=== PATIENT | male | born 1955 | race Caucasian/White ===

== ENCOUNTER 2017-12-01 13:15 | Inpatient (IN) ==
--- NOTE | 2017-12-01 13:45 | ED ---
HPI General Chief complaint: Chest Pain Stated complaint: chest pain Time Seen by Provider: 12/01/17 13:21 History of Present Illness HPI narrative: This is a 62-year-old male with a 30-ceyg-domp smoking history who presents to the emergency department with chest discomfort. The patient reports that he was reaching over his head using a microwave when he started to have pressure in his chest, constant, severe associated with nausea and diaphoresis. He felt like he was going to pass out. He has had pain like this mildly in the past but never this severe. He says several years ago he came in with chest pain like this and had multiple tests all which came back negative. He did feel somewhat short of breath with this but he denies wheezing. He does have significant COPD and has been told he may need to go on oxygen. He denies any recent long trips or travel and denies any leg swelling. Related Data Home Medications Medication Instructions Recorded Confirmed fluticasone-salmeterol [Advair HFA] 2 puff INHALATION Q12H PRN 12/01/17 12/01/17 Allergies Allergy/AdvReac Type Severity Reaction Status Date / Time No Known Allergies Allergy Unverified 12/01/17 13:30 Review of Systems Except as stated in HPI: all other systems reviewed are negative [facility] Medical History Medical History COPD (chronic obstructive pulmonary disease) (Acute) Surgical History Surgical History No history of previous surgery (Acute) Social History Social History Substance History: No History of Abuse Second Hand Smoke Exposure: Yes Smoking Status: Heavy tobacco smoker Tobacco Type: Cigarettes How Often Do You Have a Drink Containing Alcohol: Never Recent Travel in [facility] within the Last 8 Weeks: No Recent Out of Country Travel within the Last 8 Weeks: No Immunization History Tetanus Immunization: >5 Years Hx Influenza Vaccine This Season: Yes Exam Narrative Exam Narrative: GENERAL:Well appearing, no acute distress SKIN: Focused skin assessment warm and dry. HEAD: Atraumatic. Normocephalic. EYES: Pupils equal and round. No injection or drainage. ENT: Moist mucous membranes NECK: Trachea midline. CARDIOVASCULAR: Regular rate and rhythm. No murmur appreciated. RESPIRATORY: Clear to auscultation. Breath sounds equal bilaterally. GASTROINTESTINAL: Abdomen soft, non-tender, nondistended. MUSCULOSKELETAL: No obvious deformities. NEUROLOGICAL: Awake and alert. No obvious cranial nerve deficits. Moving all extremities. PSYCHIATRIC: Appropriate mood and affect; insight and judgment normal. Course Hospital Course: Patient's discomfort returned at approx 1435, at which time a repeat EKG showed an acute STEMI (ST elevations in the inferior leads with reciprocal changes in the lateral leads). The catholic priest was activated ([id number]) and I, Dr Bach, took over the care of the patient. He had already received aspirin. His BP was in the 70s, thus he was given a 250 cc bolus NS to improve his pre-load. He was given a heparin bolus of 4000 units and morphine for the pain. I spoke with Dr Manuel (Dr Lea had previously spoken with him) regarding the care of the patient, to which he agreed. Reevaluation(s) Reevaluation #1: Patient given more morphine. BP improved with fluid bolus. Patient taken up to the catholic priest by RN, Mariano, and myself. Time: 15:16 Initial Documented Vital Signs Temperature 97.8 F 12/01/17 13:30 Pulse Rate 91 H 12/01/17 13:30 Respiratory Rate 18 12/01/17 13:30 Blood Pressure 125/75 12/01/17 13:30 Pulse Oximetry 100 12/01/17 13:30 Last Documented Vital Signs Temperature 97.8 F 12/01/17 16:00 Pulse Rate 69 12/01/17 16:00 Respiratory Rate 18 12/01/17 16:00 Blood Pressure 155/99 H 12/01/17 16:00 Pulse Oximetry 96 12/01/17 16:00 Critical Care Time Critical Care Time: Yes Total Critical Care Time: 40 Attestation: Aggregate critical care time was 40 minutes. Time to perform other separately billable procedures was not included in the critical care time. My time did not include minutes spent treating any other patients simultaneously or on activities that did not directly contribute to the patient's treatment. The services I provided to this patient were to treat and/or prevent clinically significant deterioration that could result in: , disability. I provided critical care services requiring my management, as noted below: Chart data review, documentation time, medication orders and management, vital sign assessments/reviewing monitor data, ordering and reviewing lab tests, ordering and interpreting/reviewing x-rays and diagnostic studies, care of the patient and discussion of the patient with the admitting physicians (Dr Manuel). Quality Measure Queries AMI PCI delay comment: Initial EKG was inconclusive. ASA not given on arrival: Alisa taken by patient Medical Decision Making MDM Narrative Medical decision making narrative: This is a 62-year-old male who has a long smoking history who presented to the emergency department with chest discomfort. Initial EKG was not consistent with ST elevation IN. Patient had relief of his pain with nitroglycerin. I was called back into the room as the patient's pain recurred. I obtain a second EKG which demonstrated a clear inferior ST elevation IN. I discussed the patient with Dr. Manuel and the Playground Director was activated. I asked Dr. Bach to take over care of the patient as I had multiple critical patients at the time. Patient is a 62-year-old male who presented with chest pain that was initially relieved with nitroglycerin. Repeat EKG concerning for acute STEMI at which time the Playground Director was activated and both Dr. Lea and myself spoke with Dr. Manuel, applications programmer analyst. He been given aspirin prior to arrival, received a heparin bolus in the emergency department in addition to several doses of morphine and a 250 cc bolus of normal saline as his blood pressure had decreased to the 70s systolic. BP improved after receiving the bolus at which time it was stopped. Patient was then taken to the Playground Director for further management. Differential Diagnosis Differential Diagnosis: Differential diagnosis includes, but is not limited to ACS, COPD, pneumonia. Medical Records Medical records reviewed: Yes I reviewed the patient's medical records. Lab Data Lab results reviewed: Yes I reviewed the patient's lab results. Lab results narrative: Normal Hemoglobin. BMP unremarkable. Troponin pending. Result diagrams: 12/01/17 13:35 12/01/17 14:45 Lab Results 12/01/17 12/01/17 12/01/17 Range/Units 13:35 13:35 13:35 WBC 9.0 (4.0-11.0) th/mm3 RBC 5.05 (4.50-5.90) mil/mm3 Hgb 16.4 (13.0-17.0) gm/dL Hct 45.9 (39.0-51.0) % MCV 90.7 (80.0-100.0) fL MCH 32.5 (27.0-34.0) pg MCHC 35.8 (32.0-36.0) % RDW 14.0 (11.6-17.2) % Plt Count 236 (150-450) th/mm3 MPV 7.9 (7.0-11.0) fL Neut % (Auto) 59.7 (16.0-70.0) % Lymph % (Auto) 30.2 (9.0-44.0) % [place] % (Auto) 7.4 (0.0-8.0) % Eos % (Auto) 1.5 (0.0-4.0) % Baso % (Auto) 1.2 (0.0-2.0) % Neut # (Auto) 5.4 (1.8-7.7) th/mm3 Lymph # (Auto) 2.7 (1.0-4.8) th/mm3 [place] # (Auto) 0.7 (0.0-0.9) th/mm3 Eos # (Auto) 0.1 (0.0-0.4) th/mm3 Baso # (Auto) 0.1 (0.0-0.2) th/mm3 WBC Differential . Differential Comment Auto diff final PT (9.8-11.6) sec INR Ratio APTT (24.3-30.1) sec D-Dimer Quant (PE/DVT) 0.48 (0.00-0.50) mg/L FEU Sodium (136-145) meq/L Potassium (3.5-5.1) meq/L Chloride (98-107) meq/L Carbon Dioxide (21.0-32.0) meq/L Anion Gap (5-15) meq/L BUN (7-18) mg/dL Creatinine (0.60-1.30) mg/dL Estimated GFR (>89) mL/min Random Glucose (74-106) mg/dL Calcium (8.5-10.1) mg/dL Total Bilirubin (0.2-1.0) mg/dL AST (15-37) U/L ALT (12-78) U/L Alkaline Phosphatase (45-117) U/L Troponin I (0.02-0.05) ng/mL B-Natriuretic Peptide 18 (0-100) pg/mL Total Protein (6.4-8.2) g/dL Albumin (3.4-5.0) g/dL 12/01/17 12/01/17 Range/Units 14:38 14:45 WBC (4.0-11.0) th/mm3 RBC (4.50-5.90) mil/mm3 Hgb (13.0-17.0) gm/dL Hct (39.0-51.0) % MCV (80.0-100.0) fL MCH (27.0-34.0) pg MCHC (32.0-36.0) % RDW (11.6-17.2) % Plt Count (150-450) th/mm3 MPV (7.0-11.0) fL Neut % (Auto) (16.0-70.0) % Lymph % (Auto) (9.0-44.0) % [place] % (Auto) (0.0-8.0) % Eos % (Auto) (0.0-4.0) % Baso % (Auto) (0.0-2.0) % Neut # (Auto) (1.8-7.7) th/mm3 Lymph # (Auto) (1.0-4.8) th/mm3 [place] # (Auto) (0.0-0.9) th/mm3 Eos # (Auto) (0.0-0.4) th/mm3 Baso # (Auto) (0.0-0.2) th/mm3 WBC Differential Differential Comment PT 10.0 (9.8-11.6) sec INR 1.0 Ratio APTT 22.5 L (24.3-30.1) sec D-Dimer Quant (PE/DVT) (0.00-0.50) mg/L FEU Sodium 138 (136-145) meq/L Potassium 4.1 (3.5-5.1) meq/L Chloride 107 (98-107) meq/L Carbon Dioxide 22.4 (21.0-32.0) meq/L Anion Gap 9 (5-15) meq/L BUN 17 (7-18) mg/dL Creatinine 1.20 (0.60-1.30) mg/dL Estimated GFR 62 L (>89) mL/min Random Glucose 115 H (74-106) mg/dL Calcium 8.9 (8.5-10.1) mg/dL Total Bilirubin 0.3 (0.2-1.0) mg/dL AST 10 L (15-37) U/L ALT 21 (12-78) U/L Alkaline Phosphatase 83 (45-117) U/L Troponin I 0.10 H (0.02-0.05) ng/mL B-Natriuretic Peptide (0-100) pg/mL Total Protein 7.0 (6.4-8.2) g/dL Albumin 3.7 (3.4-5.0) g/dL Imaging Data Attestation: I personally reviewed and interpreted this imaging study as follows : My impression: No acute cardiopulmonary process. Radiologist's impression: Chest X-Ray 12/01/17 13:34 CONCLUSION: Unremarkable study. ECG Data Attestation: I personally reviewed and interpreted this ECG as follows: (Sinus rhythm at a rate of [address] segment elevations in the inferior leads with reciprocal changes in the lateral leads. This is markedly different in comparison to his first EKG today.) Discharge Plan Discharge Disposition Patient Disposition: 30 Still Patient Discharge Condition Condition: Serious Discharge Details Diagnosis: ST elevation (STEMI) myocardial infarction, Acute hypotension Physicians Team ED Provider: Kimberly Lea Primary Care Provider: Juan Villela Attending Provider: Dank Manuel Other Providers: Juan Lepe Status ED Status: Left Department Discharge Information Discharge Date/Time: 12/01/17 15:16
[2017-12-01 14:01] LABS: Baso # (Auto) 0.1 th/mm3 (0.0-0.2); Baso % (Auto) 1.2 % (0.0-2.0); Eos # (Auto) 0.1 th/mm3 (0.0-0.4); Eos % (Auto) 1.5 % (0.0-4.0); Hematocrit 45.9 % (39.0-51.0); Hemoglobin 16.4 gm/dL (13.0-17.0); Lymph # (Auto) 2.7 th/mm3 (1.0-4.8); Lymph % (Auto) 30.2 % (9.0-44.0); Mean Corpuscular HGB Conc 35.8 % (32.0-36.0); Mean Corpuscular Hemoglobin 32.5 pg (27.0-34.0); Mean Corpuscular Volume 90.7 fL (80.0-100.0); Mean Platelet Volume 7.9 fL (7.0-11.0); Mono # (Auto) 0.7 th/mm3 (0.0-0.9); Mono % (Auto) 7.4 % (0.0-8.0); Neut # (Auto) 5.4 th/mm3 (1.8-7.7); Neut % (Auto) 59.7 % (16.0-70.0); Platelet Count 236 th/mm3 (150-450); Red Blood Count 5.05 mil/mm3 (4.50-5.90)
[2017-12-01] MEDS ORDERED: Morphine Inj 4 MG/ML Vial IV.PUSH ONE ×2 (14:28→14:56)
[2017-12-01] MEDS ORDERED: Heparin 10,000 UNITS/10 ML Vial (for IV use) IV.PUSH STA (14:38)
[2017-12-01] MEDS ORDERED: Sod Chloride 0.9% Inj 1,000 ML IV.SIG SCH (14:45)
--- NOTE | 2017-12-01 14:51 | XR ---
EXAM DATE: 12/01/2017 2:27 PM EDT AGE/SEX: 62 years / Male INDICATIONS: . Chest pain. CLINICAL DATA: This is the patient's initial encounter. Patient reports that signs and symptoms have been present for 1 day and indicates a pain score of 7/10. MEDICAL/SURGICAL HISTORY: . COPD None. COMPARISON: No prior exams available for comparison. FINDINGS: The lungs are clear without infiltrate, nodule, or mass. There is no pleural effusion. N o appreciable pathological adenopathy is seen within the mediastinum. CONCLUSION: Unremarkable study. Electronically signed by: Robb Irizarry MD 12/01/2017 2:50 PM EDT
[2017-12-01 15:11] LABS: Activated Partial Thrombo Time 22.5 sec (24.3-30.1)
[2017-12-01] MEDS ORDERED: Heparin/NS PF Inj 1,000 ML ONE (15:15)
[2017-12-01 15:25] LABS: Alanine Aminotransferase 21 U/L (12-78); Albumin 3.7 g/dL (3.4-5.0); Anion Gap 9 meq/L (5-15); Aspartate Aminotransferase 10 U/L (15-37); Blood Urea Nitrogen 17 mg/dL (7-18); Calcium 8.9 mg/dL (8.5-10.1); Carbon Dioxide 22.4 meq/L (21.0-32.0); Chloride 107 meq/L (98-107); Glomerular Filtration Rate 62 mL/min (>89); Glucose,Random 115 mg/dL (74-106); Potassium 4.1 meq/L (3.5-5.1); Sodium 138 meq/L (136-145)
[2017-12-01 15:29] LABS: Alkaline Phosphatase 83 U/L (45-117)
[2017-12-01] MEDS ORDERED: fentaNYL Citrate Inj 100 MCG/2 ML Ampul ONE (15:40)
[2017-12-01] MEDS ORDERED: Cangrelor Inj 50,000 MCG Vial ONE (15:41)
[2017-12-01] MEDS ORDERED: Heparin 10,000 UNITS/10 ML Vial (for IV use) ONE (15:42)
[2017-12-01] MEDS ORDERED: Atropine Inj 1 MG/ML Vial IV.PUSH PRN (16:25)
[2017-12-01] MEDS ORDERED: Misc Info for Pharmacy OTHER STA (16:25)
[2017-12-01] MEDS ORDERED: Temazepam 15 MG Capsule PO PRN (16:25)
[2017-12-01] MEDS ORDERED: Acetaminophen 325 MG Tablet PO PRN (16:25)
--- NOTE | 2017-12-01 16:34 | MA ---
cc: Dank Manuel MD DATE: 12/01/2017 PROCEDURE PERFORMED: Emergency left heart catheterization, selective coronary angiography, left ventriculography, angioplasty/thrombectomy/stent of the proximal to mid right coronary artery. PROCEDURES NOTES: The patient was brought to the cardiac catheterization laboratory under emergency conditions in the midst of an acute inferior myocardial infarction. The right groin was prepped and draped as per policy and anesthetized with 1% lidocaine. Arterial access was obtained via the right femoral artery and a 6-Paragu[place] sheath placed. Coronary arteriography was performed using 6-[place] Abby left 4.0 and right progressive catheters. Left ventriculography was done using a standard 6-[place] pigtail. Percutaneous coronary intervention was done as described below. There were no apparent, immediate complications. His arteriotomy site was closed with Angio-Seal. HEMODYNAMIC DATA: Left ventricle 144 with an end-diastolic pressure of 10. Aorta 143/75 with a mean of 104. There was no significant transvalvular aortic gradient on pullback of the pigtail catheter. CORONARY ARTERIOGRAPHY: The left main is normal. The left anterior descending is a medium-sized vessel giving rise to a tiny diagonal, which may have up to 20% ostial stenosis. There are minimal luminal irregularities in the proximal LAD. In the mid LAD, there is somewhat eccentric, up to 40% stenosis. The left circumflex is a very large vessel giving rise to a medium sized obtuse marginal distally. No disease is seen in the left circumflex system. There is a large ramus intermedius, which has diffuse mid disease, resulting in up to 15% stenosis. The right coronary artery is medium-sized dominant vessel, which has diffuse proximal to mid disease, which is ulcerated and thrombosed, resulting in up to 95% stenosis. LEFT VENTRICULOGRAPHY: Contrast injection of the left ventricle revealed no definite segmental wall motion abnormalities. Ejection fraction is estimated at 60%. PERCUTANEOUS CORONARY INTERVENTION DESCRIPTION: Cangrelor was given as per protocol. Adequate heparin was given to achieve an ACT of 300 seconds. Using a 6-Paragu[place] hockey stick guiding catheter with side holes, the ostium of the right coronary artery was reengaged. Using a 0.014 [place] wire, the proximal to mid disease was crossed without difficulty and the tip of the wire positioned distally. Predilation was done using a 2.0 mm Euphora balloon catheter to enable passage of the [place] thrombectomy catheter. One pass was made with the [place] catheter clearing most of the thrombus. Further predilation was done using a 3.5 mm Euphora balloon catheter. Stenting was then done using a 3.5 x 26 mm Resolute [place] stent, which was deployed at 17 atmospheres for 40 seconds. At this point, there appears to be residual disease slightly proximal to the stent, resulting in up to 60% stenosis, so we decided to place another overlapping stent, which is a 3.5 x 8 mm Resolute Uli stent, which was deployed at 17 atmospheres for 40 seconds. Final angiography shows good results with reduction of the diffuse disease to roughly 0% residual with no definite evidence of dissection or distal embolization. The patient tolerated the procedure fairly well. There were no apparent, immediate complications. CONCLUSIONS: 1. Severe single vessel coronary artery disease. 2. Acute inferior ST elevation myocardial infarction due to severe disease in the proximal to mid right coronary artery, now status post thrombectomy, angioplasty, stent of this region. 3. Normal left ventricular function with estimated ejection fraction of 60%. MD TA Ornelas/JOSETTE , 04:17 PM , 04:24 PM MTD[place]ena
--- NOTE | 2017-12-01 16:42 | CATHPROC ---
Assignment Editor HIS Report Study Information Study Number Admission Scheduled Start Study Start [id number] Dec 01 2017 2:58PM 12/01/2017 Dec 01 2017 3:16PM [place] [facility] Cardiac Catheterization Admit Source Facility Department Emergency department [facility] - [employer] [employer] Physician and Clinical Staff Initial Dank Pierre Student Success Advisor Ching Downs,RN Student Success Advisor Ayse Case,JANNA Recorder Alison Biggs,FENCE MAKING MACHINE OPERATOR TECH2 Scrub Osmel Hoff,RT(R) Procedures Performed Procedure Location (Site) Vessel Name Coronary Angiograms LCA Left Coronary Coronary Angiograms RCA Right Coronary Drug Eluting Inflatio RCA Mid Right Coronary Drug Eluting Inflatio RCA Prox Right Coronary PTCA RCA Prox Right Coronary Wire insertion Fem Art (right) Femoral Art Equipment Time Press Loader Description Size Mfg Part Number Used/Scraped [id number] 15:41 [employer] WIRE, ASAHI PROWATER 180CM 180CM Used *[id number] TRANSDUCER, TRUWAVE [id number] 15:18 PIÑA WU * Used W/STOCKCOCK *[id number] *[id number] *[id number] *[id number] *[id number] 16:05 DAIG/ST. KAYLI MEDICAL ANGIOSEAL, FR6 VIP FR 6 Used *[id number] 16:03 MALLINCKRODT SYRINGE, ANGIOMAT 150ML 150ML *[id number] Used 2SUB [id number] 15:18 DNA13 BLANKET,WARM AIR CCL * Used *[id number] 15:18 DNA13 PACK, CCL CUSTOM * Used *[id number] 15:18 MEDLINE PACER PEN, SKIN DUAL W/ RULER * Used *[id number] 15:46 MEDTRONIC BALLOON, 2.0 X 15MM EUPHORA 15MM Used *[id number] 15:52 MEDTR[employer] BALLOON, 3.5 X 20MM EUPHORA 20MM Used *[id number] 15:50 MEDTRONIC CATHETER, EXPORT ASPIRATON Used *[id number] 15:57 MEDTRONIC STENT, 3.5 26MM MARJAN 3.5 26MM [id number] Used [id number] 15:57 [employer]TR[employer]IC STENT, 3.5 8MM MARJAN 3.5 8MM Used *[id number] 15:48 [employer] MEDICAL 30 KENN INDEFLATOR Used *[id number] 15:18 [employer] MEDICAL SHEATH, FR6.5 PRELUDE 11CM FR 6.5 038ACT Used *[id number] 15:18 [employer] MEDICAL WIRE, 3MMJ .035 180CM 180CM Used *[id number] 15:18 NAMIC MANIFOLD, 4 PORT * Used *[id number] TUBING, PRESSURE INJECTION [id number] 16:03 NAMIC 72" Used 72" *[id number] 15:18 NYCOMED OMNIPAQUE, 350 MG, 150ML 150ML [id number] Used Equipment Model, Serial, Lot Number and Expiration Data Description Model Number Serial Number Lot Number Expiration Date ANGIOSEAL, FR6 VIP [id number] 09-03-2018 STENT, 3.5 26MM MARJAN [id number] 07-11-2019 STENT, 3.5 8MM MARJAN [id number] 08-02-2018 History: Allergies Allergy Reaction No Known Allergies History: Risk Factors Family History of Hypertension Dyslipidemia Previous NH Previous Heart Failure Premature CAD Yes No No No No Prior Valve Prior PCI Prior CABG Surgery No No No Cerebrovascular Peripheral Artery Chronic Lung On Dialysis Diabetes Disease Disease Disease No No No Yes No History: Symptoms/Diagnosis Selection Items Chest pain SOB History: Stress Tests Stress or Imaging Studies Performed No History: Other Current Smoker Method Packs a Day Years Used Pack Years Yes Cigarettes 1 40 40 Labs Hgb (g/dl) Hct (%) WBC (l/cumm) Platelets (thousands) 11.60-17.00 35.00-51.00 4.00-11.00 150.00-450.00 16.4 45.9 9 236 Glucose (mg/dl) BUN (mg/dl) Creatinine (mg/dl) BUN:Creatinine (1:x) 74.00-106.00 7.00-18.00 0.50-1.30 10.00-20.00 115 17 1.2 14.2 Na (meq/l) K (meq/l) Cl (meq/l) CO2 (mmol/L) 136.00-145.00 3.50-5.10 98.00-107.00 21.00-32.00 138 4.1 107 22.4 INR (PTT:PT) 0.90-1.10 1 Troponin I (ng/ml) CPK-MB (ng/ML) 0.02-0.05 0.50-3.60 0.1 Not Drawn Medication Medication Total Dose (Bolus/Oral) Medication Total Dosage/Unit 1% XYLOCAINE 20 mL BRILINTA 180 mg FENTANYL 100 mcg HEPARIN 4000 units NTG (IC) 350 mcg OXYGEN 2 l/min VASOTEC 1.25 mg VERSED 4 mg Medications (Bolus/Oral) Medication Time Given Dosage/Unit Administered By Reason OXYGEN 12/01/2017 3:22:15 PM 2 l/min Patient arrived on 2 l/min OXYGEN via Nasal. VERSED 12/01/2017 3:34:04 PM 2 mg Manpreet, Ayse 2 mg VERSED given in lab by Ayse Case RN in Right Antecubital via Peripheral IV. Ordered by Dank Ma. 1% XYLOCAINE 12/01/2017 3:35:09 PM 20 mL Dank Manuel 20 mL 1% XYLOCAINE given in lab by Dank Manuel in Right Groin via Subcutaneous. Ordered by Sae Manuel enn. FENTANYL 12/01/2017 3:40:57 PM 50 mcg Mohini Caseinda 50 mcg FENTANYL given in lab by Ayse Case RN in Right Antecubital via Peripheral IV. Ordered by Dank Manuel. HEPARIN 12/01/2017 3:43:06 PM 4000 units Mohini Caseinda 4000 units HEPARIN given in lab by Ayse Case RN in Right Antecubital via Peripheral IV. Ordered by Dank Manuel. VERSED 12/01/2017 3:54:19 PM 2 mg Manpreet, Ayse 2 mg VERSED given in lab by Ayse Case RN in Right Antecubital via Peripheral IV. Ordered by Dank Ma. NTG (IC) 12/01/2017 3:55:27 PM 150 mcg Dank Manuel 150 mcg NTG (IC) given in lab by Dank Manuel via Intra-coronary. Ordered by Dank Manuel. NTG (IC) 12/01/2017 4:00:48 PM 200 mcg Dank Manuel 200 mcg NTG (IC) given in lab by Dank Manuel via Intra-coronary. Ordered by Dank Manuel. FENTANYL 12/01/2017 4:01:04 PM 50 mcg Ayse Case 50 mcg FENTANYL given in lab by Ayse Case RN in Right Antecubital via Peripheral IV. Ordered by Dank Manuel. BRILINTA 12/01/2017 4:15:24 PM 180 mg Ching Downs 180 mg BRILINTA given in lab by Ching Downs, JANNA via Oral. Ordered by Dank Manuel. VASOTEC 12/01/2017 4:18:21 PM 1.25 mg Ching Downs 1.25 mg VASOTEC given in lab by Ching Downs, JANNA in Right Antecubital via Peripheral IV. Ordered b Dank Goldman. Medication (Drip) Medication Time Given Dosage/Unit Concentration/Unit Diluent (ml) Solution IV Solutions 12/01/2017 3:26:14 PM 0 mL (IV) 1000 NaCl .9 Patient arrived on IV Solutions in Right Antecubital via Peripheral IV. Pump/Drip Flow = 20 ml/hr usi ng NaCl .9. KENGREAL BOLUS 12/01/2017 3:46:40 PM 10 mL 10 mL KENGREAL BOLUS given in lab by Ching Downs, JANNA in Right Antecubital via Peripheral IV. Orde red by Dank Manuel. KENGREAL DRIP 12/01/2017 3:48:43 PM 4 mcg/kg/min 50 mg 250 NaCl .9 4 mcg/kg/min KENGREAL DRIP given in lab by Ching Downs, JANNA in Right Antecubital via Peripheral IV . Pump/Drip Flow = 78.84 ml/hr using NaCl .9 with a concentration of 50 mg in 250 ml. Ordered by Dank Manuel. Initial Case Assessment Cardiovascular HR Rhythm NIBP Chest Pain 89 sr 165/106 5 Circulatory - Right Pulses Dorsalis Pedis Femoral 2 2 Scale (0,1,2,3,4,d) Circulatory - Left Pulses Dorsalis Pedis Femoral 2 2 Scale (0,1,2,3,4,d) Neurological State Oriented to time-place- Alert Moves all extremities person Respiration - General Respiration Rate SpO2 (%) O2 (lpm) (B/min) 20 100 2 Final Case Assessment Cardiovascular HR Rhythm NIBP 68 sr 162/112 Circulatory - Right Pulses Dorsalis Pedis Femoral 2 2 Scale (0,1,2,3,4,d) Circulatory - Left Pulses Dorsalis Pedis Femoral 2 2 Scale (0,1,2,3,4,d) Neurological State Oriented to time-place- Alert Moves all extremities person Respiration - General Respiration Rate SpO2 (%) O2 (lpm) (B/min) 16 97 2 Chronological Log Time Study Chronological Log 15:17:45 Emergency Room notified that [employer] is ready. 15:21:48 Patient arrived via Bed. 15:21:52 Patient Name, D.O.B, / Armband Verified By R.N. 15:22:15 Patient arrived on 2 l/min OXYGEN via Nasal. Vitals capture started with the following parameters, Patient=Adult, Interval=5 min, Initial Pr cfptqv=792 mmHg, 15:24:59 Deflation Rate=5 mmHg, Cuff placed on Left Arm 15:26:02 Consent signed by the physician and the patient and verified by the [employer] staff. 15:26:03 Pre-op and post- op instructions given; patient acknowledges understanding of instructions. 15:26:05 Verbal Stimulation=2 Physical Stimulation=2 Airway=2 Respiration=2 TOTAL=8. (0=absent, 1=li mited, 2=present) 15:26:06 Presedation assessment performed by [employer] RN. 15:26:08 Patient has been NPO for More than 6Hrs. 15:26:09 Skin Breakdown-none 15:26:10 Toby Prominences Protected 15:26:12 A # 2 IV was noted in the Antecubital (right). Grade = 0 15:26:13 A # 20 IV was noted in the Antecubital (left). Grade = 0 15:26:14 Patient arrived on IV Solutions in Right Antecubital via Peripheral IV. Pump/Drip Flow = 20 ml/hr using NaCl .9. 15:26:17 HR=89 bpm, YDXO=861/106 mmhg, QiJ4=306.0 %, Resp=22 B/min 15:26:17 History and physical on the chart or being dictated. 15:26:21 Table restraints applied according to hospital policy Assessment: Initial Case, HR=89 BPM, Rhythm=sr, USXY=981/106 mmhg, Chest Pain=5 Right Pulses: Abhishek Ped=2, Femoral=2 15:26:30 Left Pulses: Abhishek Ped=2, Femoral=2 Neurological: State=Alert, Ox3, ANDRADE Respiration: Resp=20 B/min, XbK1=942 %, O2=2 lpm 15:26:39 Bilateral groins prepped with 2% chlorhexidine, and draped after a 3 minute waiting time. 15:28:53 MD arrived. 15:30:30 Pressure channel 1 zeroed. 15:30:37 HR=89 bpm, ZIYI=637/100 mmhg, RpF8=078.0 %, Resp=19 B/min 15:34:04 2 mg VERSED given in lab by Ayse Case RN in Right Antecubital via Peripheral IV. Orde red by Dank Manuel. 15:34:37 Reference ECG taken Time Out. Correct patient, correct procedure, correct physician, labs, allergies, and equipment verified with label stamper 15:34:57 team present. Fire risk assesment completed (see hard stop sheet for coding). Time Out Conc urred by MD and individual staff in procedure. 15:35:07 Case Start 15:35:09 20 mL 1% XYLOCAINE given in lab by Dank Manuel in Right Groin via Subcutaneous. Ordered by Dank Manuel. 15:35:40 HR=82 bpm, XUQM=459/98 mmhg, SpO2=99.0 %, Resp=8 B/min 15:37:40 Access site was Right Femoral Artery. 15:37:47 A SHEATH, FR6.5 PRELUDE 11CM FR 6.5 was advanced into the Fem Art (right) using the Percuta neous technique. A JL 4.0 INFINITI CATHETER FR 6 was advanced over a wire. OMNIPAQUE, 350 MG, 150ML 150ML was us ed for 15:37:54 injections. 15:38:44 Activated Clotting Time Drawn 15:39:24 The LCA was injected and visualized at various angles. OMNIPAQUE, 350 MG, 150ML 150ML used . Recorded Pressure: Ao, HR=79, Condition=Condition 1 15:39:39 (Aorta) Ao 149/73/105 15:40:15 Catheter was removed A 3DRC INFINITI CATHETER FR 6 was advanced over a wire. OMNIPAQUE, 350 MG, 150ML 150ML was used for 15:40:16 injections. 15:40:39 HR=85 bpm, LUWP=537/93 mmhg, SpO2=99.0 %, Resp=13 B/min 15:40:57 50 mcg FENTANYL given in lab by Ayse Case, JANNA in Right Antecubital via Peripheral IV. Ordered by Dank Manuel. 15:41:08 ACT (Normal Range 90-180) = 172 15:41:17 The RCA was injected and visualized at various angles. OMNIPAQUE, 350 MG, 150ML 150ML used . 15:41:32 Catheter was removed 15:43:06 4000 units HEPARIN given in lab by Ayse Case, JANNA in Right Antecubital via Peripheral I V. Ordered by Dank Manuel. A HS SH GUIDE CATHETER FR 6 was advanced over a wire. OMNIPAQUE, 350 MG, 150ML 150ML was used f or 15:43:27 injections. 15:45:16 A WIRE, ASAHI PROWATER 180CM 180CM was inserted via Fem Art (right). 15:46:13 HR=82 bpm, PDHU=279/87 mmhg, SpO2=93 %, Resp=15 B/min 15:46:22 A BALLOON, 2.0 X 15MM EUPHORA 15MM was inserted over WIRE, ASAHI PROWATER 180CM 180CM via t he RCA Prox. 10 mL KENGREAL BOLUS given in lab by Ching Downs, JANNA in Right Antecubital via Peripheral IV . Ordered by Mar 15:46:40 Dank. A BALLOON, 2.0 X 15MM EUPHORA 15MM over a WIRE, ASAHI PROWATER 180CM 180CM in the RCA Prox was inflated 15:47:23 using a 30 KENN INDEFLATOR at 10 kenn for 30 sec. 15:47:57 Balloon Removed. 4 mcg/kg/min KENGREAL DRIP given in lab by Ching Downs, JANNA in Right Antecubital via Periphe ral IV. Pump/Drip 15:48:43 Flow = 78.84 ml/hr using NaCl .9 with a concentration of 50 mg in 250 ml. Ordered by Vikas Manuel. 15:48:58 Activated Clotting Time Drawn 15:49:18 A CATHETER, EXPORT ASPIRATON was advanced over a wire. 15:49:30 Aspiration in progress 15:50:32 Pimento Catheter was removed 15:50:37 HR=76 bpm, JAKL=024/97 mmhg, SpO2=95.0 %, Resp=13 B/min 15:52:28 A BALLOON, 3.5 X 20MM EUPHORA 20MM was inserted over WIRE, ASAHI PROWATER 180CM 180CM via t he RCA Prox. A BALLOON, 3.5 X 20MM EUPHORA 20MM over a WIRE, ASAHI PROWATER 180CM 180CM in the RCA Prox was inflated 15:52:49 using a 30 KENN INDEFLATOR at 13 kenn for 26 sec. A BALLOON, 3.5 X 20MM EUPHORA 20MM over a WIRE, ASAHI PROWATER 180CM 180CM in the RCA Prox was inflated 15:53:38 using a 30 KENN INDEFLATOR at 13 kenn for 30 sec. 15:53:51 ACT (Normal Range 90-180) = 300 15:54:19 2 mg VERSED given in lab by Ayse Case RN in Right Antecubital via Peripheral IV. Orde red by Dank Manuel. 15:54:21 Balloon Removed. 15:55:27 150 mcg NTG (IC) given in lab by Dank Manuel via Intra-coronary. Ordered by Dank Manuel. 15:55:40 HR=59 bpm, MBMJ=283/97 mmhg, VzT7=190.0 %, Resp=12 B/min A STENT, 3.5 26MM MARJAN 3.5 26MM was advanced through a HS SH GUIDE CATHETER FR 6 over a WIRE, A SHANIQUA 15:56:30 PROWATER 180CM 180CM. A STENT, 3.5 26MM MARJAN 3.5 26MM was deployed using a 30 KENN INDEFLATOR at 17 atmospheres for 40 seconds in 15:56:32 the RCA Mid. 15:57:40 Delivery device removed A STENT, 3.5 8MM MARJAN 3.5 8MM was advanced through a HS SH GUIDE CATHETER FR 6 over a WIRE, ASA HI 15:58:52 PROWATER 180CM 180CM. A STENT, 3.5 8MM MARJAN 3.5 8MM was deployed using a 30 KENN INDEFLATOR at 17 atmospheres for 40 s econds in the 15:59:12 RCA Prox. 15:59:55 Delivery device removed 16:00:39 HR=75 bpm, JNXE=465/95 mmhg, SpO2=96.0 %, Resp=19 B/min 16:00:48 200 mcg NTG (IC) given in lab by Dank Manuel via Intra-coronary. Ordered by Dank Manuel. 16:01:04 50 mcg FENTANYL given in lab by Ayse Case RN in Right Antecubital via Peripheral IV. Ordered by Dank Manuel. 16:02:03 Wire removed 16:02:10 Catheter was removed A PIGTAIL STR INFINITI CATHETER FR 6 was advanced over a wire. OMNIPAQUE, 350 MG, 150ML 150ML w as used for 16:02:12 injections. Recorded Pressure: LV, HR=83, Condition=Condition 1 16:02:43 (Left Ventricle) LV 139/3/11 Recorded Pressure: LV, Ao, HR=87, Condition=Condition 1 16:04:30 (Left Ventricle) LV 144/4/7, (Aorta) Ao 143/75/104 16:05:22 Catheter was removed 16:05:40 HR=86 bpm, XXSO=050/93 mmhg, SpO2=96 %, Resp=20 B/min 16:06:04 Case End (Physician broke scrub) 16:06:14 An injection in the Fem Art (right) was made through the SHEATH, FR6.5 PRELUDE 11CM FR 6.5. 16:08:58 Patient has to urinate, urinal put in place. Unable to urinate. 16:11:20 HR=85 bpm, LNIQ=416/103 mmhg, SpO2=95.0 %, Resp=10 B/min 16:11:45 ANGIOSEAL, FR6 VIP FR 6 placement in the Fem Art (right) manual pressure held 16:15:24 180 mg BRILINTA given in lab by Ching Downs RN via Oral. Ordered by Dank Manuel. 16:15:43 HR=73 bpm, NBOB=539/112 mmhg, SpO2=97.0 %, Resp=11 B/min Assessment: Final Case, HR=68 BPM, Rhythm=sr, DBAL=139/112 mmhg Right Pulses: Abhishek Ped=2, Femoral=2 16:15:50 Left Pulses: Abhishek Ped=2, Femoral=2 Neurological: State=Alert, Ox3, ANDRADE Respiration: Resp=16 B/min, SpO2=97 %, O2=2 lpm 16:18:21 1.25 mg VASOTEC given in lab by Ching Downs, RN in Right Antecubital via Peripheral IV. Ordered by Dank Manuel. 16:20:40 HR=89 bpm, IYKK=101/104 mmhg, SpO2=95.0 %, Resp=12 B/min, Pain=0, Bryan=2 16:24:14 NIBP STAT measurement started. 16:24:49 Sterile dressing applied to site 16:24:51 JWCA=996/107 mmhg, SpO2=98.0 %, Resp=12 B/min, Pain=0, Bryan=2 16:26:40 RAPX=464/110 mmhg 16:29:18 Patient moved to bed 16:31:53 Patient transported to [facility] End Study - Contrast Media Used In Study Contrast Total Opened (mL) Total Used (mL) Total Wasted (mL) Omnipaque 175 175 0 End Study - Maximum Contrast Load Max Contrast Load (mL) 273.7 End Study - Radiation Exposure Fluoro Time Fluoro Dose (mGy) Cine Dose (uGym2) (minutes) 6.7 509 3426 End Study - Sheaths Sheaths Pulled By Sheath Hold Time (min) Osmel Hoff End Study - Patient Disposition Complications Transferred To Interventional Outcome No Telemetry Bed successful
--- NOTE | 2017-12-01 16:48 | MB ---
cc: Dank Manuel MD DATE: 12/01/2017 REASON FOR CONSULTATION: ST elevation myocardial infarction. HISTORY OF PRESENT ILLNESS: The patient is a 62-year-old white male with a history of hypertension, COPD, who was in his usual state of health up until approximately 90 minutes prior to presentation when he began to develop severe substernal chest discomfort associated with moderate shortness of breath without nausea or diaphoresis. He came to the emergency department where he was found to have electrocardiographic evidence for acute inferior ST elevation myocardial infarction after the initial EKG was unremarkable. The patient describes the discomfort as a "pressure", also associated with lightheadedness to the point of near syncope. He notes similar chest discomforts in the past few months, although of much less intensity and duration. He denies pleurisy, palpitations, pedal edema, or paroxysmal nocturnal dyspnea. Chronically, he has mild to moderate dyspnea with exertion, but denies any recent wheezing. PAST MEDICAL HISTORY: 1. Hypertension. 2. COPD. CARDIAC MEDICATIONS AT HOME: None. ALLERGIES: NO KNOWN DRUG ALLERGIES. FAMILY HISTORY: There is no significant family history of early myocardial infarction. SOCIAL HISTORY: The patient smokes about a pack of cigarettes per day. He denies alcohol abuse. REVIEW OF SYSTEMS: As in the history of present illness, otherwise negative or noncontributory. He also denies headache, abdominal pain, melena, dyspepsia, and bright red blood per rectum. PHYSICAL EXAMINATION: VITAL SIGNS: His blood pressure 160/88 with a pulse of 82, respirations 22. GENERAL: He is a well-developed, thin white male, in no acute distress. NECK: Jugular venous pressure is normal. Carotid pulses are 2+ bilaterally and without bruits. CHEST: Reveals diminished breath sounds diffusely. CARDIAC: He has a regular rhythm and rate without definite S3, S4, or murmur. ABDOMEN: He has a soft, nontender abdomen. Bowel sounds are present. There is no definite hepatosplenomegaly. EXTREMITIES: Reveals no clubbing, cyanosis or edema. Peripheral pulses are normal throughout. DIAGNOSTIC STUDIES: EKG initially shows sinus rhythm, normal EKG. Subsequent EKG shows sinus rhythm, inferior ST elevation with reciprocal changes consistent with acute injury pattern. LABORATORY DATA: Includes normal CBC. BUN 17, creatinine 1.20. Troponin 0.10. Potassium 4.1. IMAGING STUDIES: Chest x-ray shows no acute disease. IMPRESSION: Acute inferior ST elevation myocardial infarction in this 62-year-old white male with a history of hypertension and chronic obstructive pulmonary disease. At this time, he continues to have chest discomfort, although much less intensity compared to earlier today. Given his ongoing chest discomfort and acute EKG changes, he has been recommended emergency cardiac catheterization with probable percutaneous coronary intervention. The nature of these procedures and potential risks including, but not limited to , myocardial infarction, stroke, arrhythmia, bleeding, infection, and renal failure have been outlined to the patient, who agrees to proceed. RECOMMENDATIONS: 1. Emergency cardiac catheterization. 2. Eventually initiate beta geo and KRISTINA inhibitor therapy. 3. Check a fasting lipid profile and start statin therapy. MD TA Ornelas/JOSETTE , 04:32 PM , 04:40 PM ROBINA
[2017-12-01] MEDS: Sod Chloride 0.9% Inj 1,000 ML IV.CONT SCH (17:10)
[2017-12-01] MEDS ORDERED: Carvedilol 12.5 MG Tablet PO ONE (18:15)
[2017-12-01] MEDS: Acetaminophen 325 MG Tablet PO PRN (18:44)
[2017-12-01] MEDS: Carvedilol 12.5 MG Tablet PO SCH (21:46)
[2017-12-02] MEDS: Sod Chloride 0.9% Inj 1,000 ML IV.CONT SCH ×3 (03:05→05:55)
[2017-12-02 04:55] LABS: Calcium 8.5 mg/dL (8.5-10.1); Carbon Dioxide 23.2 meq/L (21.0-32.0); Potassium 3.5 meq/L (3.5-5.1)
[2017-12-02 05:00] LABS: Chol/HDL Ratio 7.44 Ratio; HDL Cholesterol 34.5 mg/dL (40.0-60.0)
[2017-12-02 05:17] LABS: Creatine Kinase MB 45.6 ng/mL (0.5-3.6)
[2017-12-02 05:23] LABS: CKMB Percent 11.6 % (0.0-4.0)
[2017-12-02] MEDS: Carvedilol 12.5 MG Tablet PO SCH ×3 (09:28→20:59)
--- NOTE | 2017-12-02 11:58 | P.PNCA ---
Subjective Interval history: No CP, dyspnea, dizziness, palpitations. Slight nausea, poor appetite this morning. Physical Exam Vital signs: Vital Signs 12/01/17 13:30 12/01/17 13:38 12/01/17 13:46 Temperature 97.8 F Pulse Rate 91 H 91 H 98 H Respiratory Rate 18 19 22 Blood Pressure 125/75 120/87 118/81 Pulse Oximetry 100 99 100 12/01/17 13:49 12/01/17 14:36 12/01/17 14:40 Temperature Pulse Rate Respiratory Rate 12 14 26 H Blood Pressure Pulse Oximetry 12/01/17 14:44 12/01/17 14:52 12/01/17 15:00 Temperature Pulse Rate 76 90 Respiratory Rate 20 17 Blood Pressure 112/62 139/88 Pulse Oximetry 100 100 100 12/01/17 15:01 12/01/17 15:05 12/01/17 16:00 Temperature 97.8 F Pulse Rate 82 69 Respiratory Rate 22 18 Blood Pressure 160/88 H 155/99 H Pulse Oximetry 100 100 96 12/01/17 18:00 12/01/17 19:00 12/01/17 19:58 Temperature 98.1 F Pulse Rate 67 71 73 Respiratory Rate 18 Blood Pressure 193/107 H Pulse Oximetry 98 12/01/17 20:00 12/01/17 21:00 12/01/17 22:00 Temperature Pulse Rate 62 76 64 Respiratory Rate Blood Pressure Pulse Oximetry 12/01/17 23:00 12/01/17 23:06 12/02/17 00:00 Temperature 97.8 F Pulse Rate 70 75 64 Respiratory Rate 20 Blood Pressure 198/105 H Pulse Oximetry 98 12/02/17 01:00 12/02/17 02:00 12/02/17 03:00 Temperature Pulse Rate 68 60 53 L Respiratory Rate Blood Pressure Pulse Oximetry 12/02/17 03:12 12/02/17 04:00 12/02/17 05:00 Temperature 98.3 F Pulse Rate 78 60 58 L Respiratory Rate 22 Blood Pressure 92/49 L Pulse Oximetry 98 12/02/17 06:00 12/02/17 07:00 12/02/17 08:00 Temperature 97.3 F L Pulse Rate 61 60 78 Respiratory Rate 18 Blood Pressure 153/71 H Pulse Oximetry 99 Intake & Output 12/01/17 12/02/17 12/02/17 18:59 06:59 18:59 Intake Total 240 / 240 1720 / 1720 Output Total 500 / 500 1175 / 1175 Balance -260 / -260 545 / 545 Weight 65.771 kg 65.7 kg Intake: IV 1000 / 1000 NS Inj 1,000 ML @ 150 mls/hr IV 1000 / 1000 .CONT .Q6H40M [facility] Rx#:[id number] Oral 240 / 240 720 / 720 Output: Urine 500 / 500 1175 / 1175 - Constitutional no acute distress - Routine Neck Exam Absent: JVD - Routine Respiratory Exam Present: CTA bilaterally - Routine Cardiovascular Exam Present: RRR, S1, S2. Absent: murmur, gallop - Routine Abdominal Exam Present: soft, normoactive bowel sounds. Absent: tenderness, organomegaly - Routine Extremities Exam Absent: cyanosis, clubbing, edema Comments: Right femoral arteriotomy site stable, no hematoma or tenderness. Assessment and Plan - Assessment (1) ST elevation (STEMI) myocardial infarction Code(s): I21.3 - ST elevation (STEMI) myocardial infarction of unspecified site Status: Acute Plan: Stable clinically. No further angina. No CHF. Continue current medical therapy, optimize beta geo, KRISTINA-I dosing. Continue Brilinta, baby aspirin. Possible discharge tomorrow if stable. (2) Non-sustained ventricular tachycardia Code(s): I47.2 - Ventricular tachycardia Status: Acute Plan: Infrequent salvoes of probable nonsustained VT. May be due to reperfusion. Continue to monitor. EF normal. (3) Hypertension Code(s): I10 - Essential (primary) hypertension Status: Chronic (4) Hyperlipidemia Code(s): E78.5 - Hyperlipidemia, unspecified Status: Chronic Plan: Very suboptimal lipid profile. Recommend increase atorvastatin to max dosing. - Plan Code Status: full code Discussed Condition With: patient and (1) ST elevation (STEMI) myocardial infarction Qualifiers: Involved coronary artery: right coronary artery Qualified Code(s): I21.11 - ST elevation (STEMI) myocardial infarction involving right coronary artery (3) Hypertension Qualifiers: Hypertension type: essential hypertension Qualified Code(s): I10 - Essential (primary) hypertension (4) Hyperlipidemia Qualifiers: Hyperlipidemia type: mixed hyperlipidemia Qualified Code(s): E78.2 - Mixed hyperlipidemia
--- NOTE | 2017-12-02 14:33 | ECG ---
Date Performed: 12/01/2017 Time Performed: 13:23:39 PTAGE: 62 years EKG: Sinus rhythm WITH SHORT TN INTERVAL NONSPECIFIC T-WAVE ABNORMALITY Since previous tracing, no significant change noted BORDERLINE ECG PREVIOUS TRACING : 11/02/1994 22.07 DOCTOR: Mani Hoffmann Interpretating Date/Time 12/02/2017 14:31:45
--- NOTE | 2017-12-02 14:33 | ECG ---
Date Performed: 12/01/2017 Time Performed: 14:36:38 PTAGE: 62 years EKG: Sinus rhythm WITH SHORT TX INTERVAL Since previous tracing, no significant change noted ABNORMAL ECG PREVIOUS TRACING : 12/01/2017 13.23 DOCTOR: Mani Hoffmann Interpretating Date/Time 12/02/2017 14:33:00
--- NOTE | 2017-12-02 16:08 | P.HPIM ---
History of Present Illness Service: [facility] Primary Care Physician: Juan Villela DO Chief Complaint: ST elevation NV chest pain History of Present Illness: Patient is a 62-year-old male with a 40 year pack history of smoking who presents to the emergency department with chest discomfort. Patient states that he was reaching over his head using a microwave when he started to have pressure in his chest that was constant and severe associated with nausea and diaphoresis. He felt like he was going to pass out. He had had some mild pain like this but nothing this severe before in the past. Was also somewhat short of breath denies any wheezing does have significant COPD and may need to be on oxygen in the future. Was seen by cardiology for an ST elevation myocardial infarction. Had a discomfort as a "pressure" associated with lightheadedness to the point of near syncope had similar chest discomfort in the past few months although much less intense in duration. Has moderate to mild dyspnea on exertion due to COPD Underwent a cardiac catheterization and stenting of the RCA by Dr. Manuel His only home medications include Advair Inpatient Certification: I certify that the inpatient services were ordered in accordance with Medicare regulations governing the order. This includes certification that hospital inpatient services are reasonable and necessary and in the case of services not specified as inpatient-only under 42 CFR 419.22(n), that they are appropriately provided as inpatient services in accordance to with the 2-midnight benchmark under 43 CFR 412.3(e) Estimated Total Length of Stay (Days): 2 Plans for Post Hospital Care: Home Review of Systems All other systems reviewed negative except as stated in HPI ON LICENSE OF [facility] - History History Provided By: Patient - Medical History Medical History: Medical History (Last Updated 12/02/17 @ 16:03 by Raphael Valdes DO) COPD (chronic obstructive pulmonary disease) Hypertension - Surgical History Surgical History: Surgical History (Last Reviewed 12/01/17 @ 13:44 by Kimberly Lea MD) No history of previous surgery - Tobacco History Second Hand Smoke Exposure: Yes Tobacco Use In Past 30 Days: Yes Smoking Status: Current every day smoker Tobacco Type: Cigarettes - Alcohol History How Often Do You Have a Drink Containing Alcohol: Monthly or less - Substance Use History Substance History: No History of Abuse - Travel History History of Recent Travel: No Recent Travel in the [place] Within the Last 8 Weeks: No Recent Travel Out of the Country Within the Last 8 Weeks: No - Immunization History Tetanus Immunization: >5 Years Hx Influenza Vaccine This Season: Yes Medications and Allergies Active Medications: Active Medications Acetaminophen (Tylenol) 325 mg PO Q4H PRN PRN Reason: PAIN SCALE 1 TO 2 Acetaminophen (Tylenol) 650 mg PO Q4H PRN PRN Reason: PAIN SCALE 3 TO 5 Last Admin: 12/01/17 18:44 Dose: 650 mg Aspirin (Ecotrin) 81 mg PO DAILY [facility] Last Admin: 12/02/17 09:28 Dose: 81 mg Atorvastatin Calcium (Lipitor) 80 mg PO HS [facility] Atropine Sulfate (Atropine Inj) 0.5 mg IV.PUSH UNSCH PRN PRN Reason: VAGAL REPONSE Carvedilol (Coreg) 25 mg PO BID [facility] Last Admin: 12/02/17 13:32 Dose: 25 mg Enalapril Maleate (Vasotec) 20 mg PO BID [facility] Last Admin: 12/02/17 13:32 Dose: 20 mg Sodium Chloride (Ns Inj) 1,000 mls @ 150 mls/hr IV.CONT .Q6H40M [facility] Stop: 12/02/17 16:59 Last Infusion: 12/02/17 08:49 Dose: 0 mls/hr Lorazepam (Ativan Inj) 1 mg IV.PUSH Q6H PRN PRN Reason: ANXIETY Last Admin: 12/02/17 14:05 Dose: 1 mg Nicotine (Habitrol 14 Mg Patch.24 Hr) 1 patch T-DERMAL DAILY [facility] Ondansetron HCl (Zofran Inj) 8 mg IV.PUSH Q6H PRN PRN Reason: NAUSEA OR VOMITING Ondansetron HCl (Zofran Odt) 8 mg PO Q4H PRN PRN Reason: NAUSEA OR VOMITING Last Admin: 12/02/17 14:05 Dose: 8 mg Patch Removal (Remove Old Patch) 1 each T-DERMAL HS [facility] Sodium Chloride (Ns Flush) 2 ml IV.FLUSH PRN PRN PRN Reason: FLUSH AFTER USING IV ACCESS Sodium Chloride (Ns Flush) 2 ml IV.FLUSH BID [facility] Last Admin: 12/01/17 21:46 Dose: 2 ml Sodium Chloride (Ns Flush) 2 ml IV.FLUSH PRN PRN PRN Reason: FLUSH AFTER USING IV ACCESS Temazepam (Restoril) 15 mg PO HS PRN PRN Reason: SLEEP Ticagrelor (Brilinta) 90 mg PO BID [facility] Last Admin: 12/02/17 09:28 Dose: 90 mg Allergies Allergy/AdvReac Type Severity Reaction Status Date / Time No Known Allergies Allergy Unverified 12/01/17 13:30 Home Medications Medication Instructions Recorded Confirmed Type fluticasone-salmeterol [Advair HFA] 2 puff INHALATION Q12H PRN 12/01/17 History Exam Vital signs: Vital Signs 12/01/17 16:00 12/01/17 18:00 12/01/17 19:00 Temperature 97.8 F Pulse Rate 69 67 71 Respiratory Rate 18 Blood Pressure 155/99 H Pulse Oximetry 96 12/01/17 19:58 12/01/17 20:00 12/01/17 21:00 Temperature 98.1 F Pulse Rate 73 62 76 Respiratory Rate 18 Blood Pressure 193/107 H Pulse Oximetry 98 12/01/17 22:00 12/01/17 23:00 12/01/17 23:06 Temperature 97.8 F Pulse Rate 64 70 75 Respiratory Rate 20 Blood Pressure 198/105 H Pulse Oximetry 98 12/02/17 00:00 12/02/17 01:00 12/02/17 02:00 Temperature Pulse Rate 64 68 60 Respiratory Rate Blood Pressure Pulse Oximetry 12/02/17 03:00 12/02/17 03:12 12/02/17 04:00 Temperature 98.3 F Pulse Rate 53 L 78 60 Respiratory Rate 22 Blood Pressure 92/49 L Pulse Oximetry 98 12/02/17 05:00 12/02/17 06:00 12/02/17 07:00 Temperature Pulse Rate 58 L 61 60 Respiratory Rate Blood Pressure Pulse Oximetry 12/02/17 08:00 12/02/17 09:00 12/02/17 10:00 Temperature 97.3 F L Pulse Rate 56 L 72 66 Respiratory Rate 18 Blood Pressure 153/71 H Pulse Oximetry 98 12/02/17 11:00 12/02/17 12:00 12/02/17 13:00 Temperature 97.6 F Pulse Rate 77 64 83 Respiratory Rate 20 Blood Pressure 154/81 H Pulse Oximetry 99 Intake & Output 12/01/17 12/02/17 12/02/17 18:59 06:59 18:59 Intake Total 240 / 240 1720 / 1720 Output Total 500 / 500 1175 / 1175 Balance -260 / -260 545 / 545 Weight 65.771 kg 65.7 kg Intake: IV 1000 / 1000 NS Inj 1,000 ML @ 150 mls/hr IV 1000 / 1000 .CONT .Q6H40M [facility] Rx#:[id number] Oral 240 / 240 720 / 720 Output: Urine 500 / 500 1175 / 1175 Narrative: GENERAL: Awake alert and oriented 3 talkative and cooperative --thin appearing white male --appeared quite anxious during my exam SKIN: Warm and dry. HEAD: Atraumatic. Normocephalic. EYES: Pupils equal and round. No scleral icterus. No injection or drainage. EOMI ENT: No nasal bleeding or discharge. Mucous membranes pink and moist. Tongue is midline NECK: Trachea midline. No JVD. Supple CARDIOVASCULAR: Regular rate and rhythm. S1-S2 no S3 or S4 RESPIRATORY: No accessory muscle use. Clear to auscultation. Breath sounds equal bilaterally. GASTROINTESTINAL: Abdomen soft, non-tender, nondistended. Hepatic and splenic margins not palpable. MUSCULOSKELETAL: Extremities without clubbing, cyanosis, or edema. No obvious deformities. NEUROLOGICAL: Awake and alert. No obvious cranial nerve deficits. Motor grossly within normal limits. Five out of 5 muscle strength in the arms and legs. Normal speech. PSYCHIATRIC: Appropriate mood and affect; insight and judgment normal. Somewhat anxious Results - Labs CBC & Chem 7: 12/01/17 13:35 12/02/17 03:25 Labs: BMP 12/02/17 03:25 Sodium 141 Potassium 3.5 Chloride 109 H Carbon Dioxide 23.2 BUN 11 Creatinine 0.89 Calcium 8.5 Cardiac Enzymes 12/02/17 Range/Units 03:25 Total Creatine Kinase 393 H (39-308) U/L CK-MB (CK-2) 45.6 H (0.5-3.6) ng/mL - Imaging Chest X-Ray 12/01/17 13:34 CONCLUSION: Unremarkable study. Caprini VTE Risk Assessment Caprini VTE Risk Assessment: Moderate/High Risk (score >= 2) Caprini Risk Assessment Model: Point Value = 1 Point Value = 2 Point Value = 3 Point Value = 5 Age 41-60 Minor surgery BMI > 25 kg/m2 Swollen legs Varicose veins or History of unexplained or recurrent spontaneous Oral contraceptives or hormone replacement Sepsis (< 1 month) Serious lung disease, including pneumonia (< 1 month) Abnormal pulmonary function Acute myocardial infarction Congestive heart failure (< 1 month) History of inflammatory bowel disease Medical patient at bed rest Age 61-74 Arthroscopic surgery Major open surgery (> 45 min) Laparoscopic surgery (> 45 min) Malignancy Confined to bed (> 72 hours) Immobilizing plaster cast Central venous access Age >= 75 History of VTE Family history of VTE Factor V Leiden Prothrombin [id number] Lupus anticoagulant Anticardiolipin antibodies Elevated serum homocysteine Heparin-induced thrombocytopenia Other congenital or acquired thrombophilia Stroke (< 1 month) Elective arthroplasty Hip, pelvis, or leg fracture Acute spinal cord injury (< 1 month) Prophylaxis Regimen: Total Risk Factor Score Risk Level Prophylaxis Regimen 0-1 Low Early ambulation 2 Moderate Order ONE of the following: *Sequential Compression Device (SCD) *Heparin 5000 units SQ BID 3-4 Higher Order ONE of the following medications: *Heparin 5000 units SQ TID *Enoxaparin/Lovenox 40 mg SQ daily (WT < 150 kg, CrCl > 30 mL/min) *Enoxaparin/Lovenox 30 mg SQ daily (WT < 150 kg, CrCl > 10-29 mL/min) *Enoxaparin/Lovenox 30 mg SQ BID (WT < 150 kg, CrCl > 30 mL/min) AND/OR *Sequential Compression Device (SCD) 5 or more Highest Order ONE of the following medications: *Heparin 5000 units SQ TID (Preferred with Epidurals) *Enoxaparin/Lovenox 40 mg SQ daily (WT < 150 kg, CrCl > 30 mL/min) *Enoxaparin/Lovenox 30 mg SQ daily (WT < 150 kg, CrCl > 10-29 mL/min) *Enoxaparin/Lovenox 30 mg SQ BID (WT < 150 kg, CrCl > 30 mL/min) AND *Sequential Compression Device (SCD) Assessment and Plan - Plan ST elevation NV underwent cardiac catheterization with stenting who the right coronary artery by Dr. Manuel Hypertension continue on an KRISTINA inhibitor and beta-geo Hyperlipidemia continue on statin COPD continue on his Advair and duo nebs as needed And Mucinex Nausea and vomiting continue on Zofran if no improvement may need a GI consult but also may be secondary to the [place] Tobacco cessation recommended continue on NicoDerm Anxiety continue on Ativan as needed A.m. labs Discussed with RN and patient and case management Code Status: Full code Discussed Condition With: RN and patient and case management Discharge Planning: Hopeful discharge tomorrow if stable from cardiology and not having any issues with nausea and vomiting anymore H&P: Quality - VTE Deep Vein Thrombosis/Pulmonary Embolism Present on Admission: No
[2017-12-02] MEDS: guaiFENesin 600 MG ER Tablet PO SCH (20:58)
[2017-12-02] MEDS: Acetaminophen 325 MG Tablet PO PRN (20:58)
[2017-12-02] MEDS: Famotidine 20 MG Tablet PO SCH (20:59)
[2017-12-02] MEDS ORDERED: Budesonide-Formoterol 80/4.5 MCG 6.9 GM Inhaler INH SCH (21:00)
[2017-12-03 06:39] LABS: Baso % (Auto) 0.3 % (0.0-2.0); Eos # (Auto) 0.2 th/mm3 (0.0-0.4); Hematocrit 44.2 % (39.0-51.0); Hemoglobin 15.1 gm/dL (13.0-17.0); Lymph # (Auto) 2.4 th/mm3 (1.0-4.8); Lymph % (Auto) 31.7 % (9.0-44.0); Mean Corpuscular HGB Conc 34.2 % (32.0-36.0); Mean Corpuscular Hemoglobin 31.9 pg (27.0-34.0); Mean Corpuscular Volume 93.3 fL (80.0-100.0); Mean Platelet Volume 8.1 fL (7.0-11.0); Mono # (Auto) 0.7 th/mm3 (0.0-0.9); Neut # (Auto) 4.4 th/mm3 (1.8-7.7); Platelet Count 207 th/mm3 (150-450); Red Blood Count 4.73 mil/mm3 (4.50-5.90); Red Cell Distribution Width 13.8 % (11.6-17.2); White Blood Count 7.7 th/mm3 (4.0-11.0)
[2017-12-03 07:06] LABS: Albumin 3.2 g/dL (3.4-5.0); Anion Gap 7 meq/L (5-15); Aspartate Aminotransferase 49 U/L (15-37); Blood Urea Nitrogen 12 mg/dL (7-18); Calcium 8.8 mg/dL (8.5-10.1); Carbon Dioxide 27.4 meq/L (21.0-32.0); Chloride 109 meq/L (98-107); Glomerular Filtration Rate 77 mL/min (>89); Glucose,Random 86 mg/dL (74-106); Magnesium 2.2 mg/dL (1.5-2.5); Potassium 3.8 meq/L (3.5-5.1); Sodium 143 meq/L (136-145)
[2017-12-03 07:16] LABS: Alanine Aminotransferase 22 U/L (12-78); Alkaline Phosphatase 72 U/L (45-117); Free T4 (Free Thyroxine) 1.18 ng/dL (0.76-1.46); Phosphorus 3.1 mg/dL (2.5-4.9); Thyroid Stimulating Hormone 0.741 uIU/mL (0.358-3.740); Total Protein 6.3 g/dL (6.4-8.2)
--- NOTE | 2017-12-03 08:52 | P.PNCA ---
Subjective Interval history: Denies CP, dyspnea, dizziness, palpitations. Ambulated halls without difficulty yesterday. Physical Exam Vital signs: Vital Signs 12/02/17 09:00 12/02/17 10:00 12/02/17 11:00 Temperature Pulse Rate 72 66 77 Respiratory Rate Blood Pressure Pulse Oximetry 12/02/17 12:00 12/02/17 13:00 12/02/17 15:00 Temperature 97.6 F Pulse Rate 64 83 53 L Respiratory Rate 20 Blood Pressure 154/81 H Pulse Oximetry 99 12/02/17 16:00 12/02/17 17:00 12/02/17 18:00 Temperature 97.6 F Pulse Rate 54 L 76 62 Respiratory Rate 18 Blood Pressure 128/80 Pulse Oximetry 98 12/02/17 19:00 12/02/17 19:33 12/02/17 20:00 Temperature 97.7 F Pulse Rate 60 63 76 Respiratory Rate 22 Blood Pressure 125/91 H Pulse Oximetry 98 12/02/17 21:00 12/02/17 22:00 12/02/17 23:00 Temperature Pulse Rate 72 62 63 Respiratory Rate Blood Pressure Pulse Oximetry 12/02/17 23:13 12/03/17 00:00 12/03/17 01:00 Temperature 98.3 F Pulse Rate 76 75 Respiratory Rate 18 18 Blood Pressure 124/80 Pulse Oximetry 100 12/03/17 02:00 12/03/17 03:07 12/03/17 04:00 Temperature 96.6 F L Pulse Rate 58 L 63 64 Respiratory Rate 20 Blood Pressure 126/76 Pulse Oximetry 98 12/03/17 05:00 12/03/17 05:52 12/03/17 07:57 Temperature Pulse Rate 64 52 L 58 L Respiratory Rate 16 Blood Pressure Pulse Oximetry Intake & Output 12/02/17 12/03/17 12/03/17 18:59 06:59 18:59 Intake Total 480 / 480 Balance 480 / 480 Weight 68.2 kg Intake: Oral 480 / 480 Other: # Voids 3 - Constitutional no acute distress - Routine Neck Exam Absent: JVD - Routine Respiratory Exam Present: CTA bilaterally - Routine Cardiovascular Exam Present: RRR, S1, S2. Absent: murmur, gallop - Routine Abdominal Exam Present: soft, normoactive bowel sounds. Absent: tenderness, organomegaly - Routine Extremities Exam Absent: cyanosis, clubbing, edema Assessment and Plan - Assessment (1) ST elevation (STEMI) myocardial infarction Code(s): I21.3 - ST elevation (STEMI) myocardial infarction of unspecified site Status: Acute Plan: Stable overnight. No further angina. No CHF. Continue current medical therapy. Continue Brilinta, baby aspirin. Discharge today, 4 week f/u with me. (2) Non-sustained ventricular tachycardia Code(s): I47.2 - Ventricular tachycardia Status: Acute Plan: Stable overnight. No further nonsustained VT. May have been due to reperfusion. Continue beta geo therapy. EF normal. (3) Hypertension Code(s): I10 - Essential (primary) hypertension Status: Chronic Plan: BP's better. Recommend outpatient monitoring, therapy by his PCP. (4) Hyperlipidemia Code(s): E78.5 - Hyperlipidemia, unspecified Status: Chronic Plan: Very suboptimal lipid profile. Recommend continue atorvastatin at max dosing. - Plan Code Status: full code Discussed Condition With: patient (1) ST elevation (STEMI) myocardial infarction Qualifiers: Involved coronary artery: right coronary artery Qualified Code(s): I21.11 - ST elevation (STEMI) myocardial infarction involving right coronary artery (3) Hypertension Qualifiers: Hypertension type: essential hypertension Qualified Code(s): I10 - Essential (primary) hypertension (4) Hyperlipidemia Qualifiers: Hyperlipidemia type: mixed hyperlipidemia Qualified Code(s): E78.2 - Mixed hyperlipidemia
[2017-12-03] MEDS: guaiFENesin 600 MG ER Tablet PO SCH (09:12)
[2017-12-03] MEDS: Carvedilol 12.5 MG Tablet PO SCH (09:13)
--- NOTE | 2017-12-03 09:59 | P.PNIM ---
Subjective Interval history: Patient is a 62-year-old male with a 40 year pack history of smoking who presents to the emergency department with chest discomfort. Patient states that he was reaching over his head using a microwave when he started to have pressure in his chest that was constant and severe associated with nausea and diaphoresis. He felt like he was going to pass out. He had had some mild pain like this but nothing this severe before in the past. Was also somewhat short of breath denies any wheezing does have significant COPD and may need to be on oxygen in the future. Was seen by cardiology for an ST elevation myocardial infarction. Had a discomfort as a "pressure" associated with lightheadedness to the point of near syncope had similar chest discomfort in the past few months although much less intense in duration. Has moderate to mild dyspnea on exertion due to COPD Underwent a cardiac catheterization and stenting of the RCA by Dr. Baron His only home medications include Advair 7-30 PATIENT AMBULATING WELL NO CHEST PAIN OR NAUSEA OR VOMITING DW RN AND PT CLEARED BY CARDIOLOGY DC TO HOME TODAY FOLLOW UP CARDIOLOGY DR BARON 4 WEEKS Physical Exam Vital signs: Vital Signs 12/02/17 10:00 12/02/17 11:00 12/02/17 12:00 Temperature 97.6 F Pulse Rate 66 77 64 Respiratory Rate 20 Blood Pressure 154/81 H Pulse Oximetry 99 12/02/17 13:00 12/02/17 15:00 12/02/17 16:00 Temperature 97.6 F Pulse Rate 83 53 L 54 L Respiratory Rate 18 Blood Pressure 128/80 Pulse Oximetry 98 12/02/17 17:00 12/02/17 18:00 12/02/17 19:00 Temperature Pulse Rate 76 62 60 Respiratory Rate Blood Pressure Pulse Oximetry 12/02/17 19:33 12/02/17 20:00 12/02/17 21:00 Temperature 97.7 F Pulse Rate 63 76 72 Respiratory Rate 22 Blood Pressure 125/91 H Pulse Oximetry 98 12/02/17 22:00 12/02/17 23:00 12/02/17 23:13 Temperature Pulse Rate 62 63 Respiratory Rate 18 Blood Pressure Pulse Oximetry 12/03/17 00:00 12/03/17 01:00 12/03/17 02:00 Temperature 98.3 F Pulse Rate 76 75 58 L Respiratory Rate 18 Blood Pressure 124/80 Pulse Oximetry 100 12/03/17 03:07 12/03/17 04:00 12/03/17 05:00 Temperature 96.6 F L Pulse Rate 63 64 64 Respiratory Rate 20 Blood Pressure 126/76 Pulse Oximetry 98 12/03/17 05:52 12/03/17 07:57 Temperature Pulse Rate 52 L 58 L Respiratory Rate 16 Blood Pressure Pulse Oximetry Intake & Output 12/02/17 12/03/17 12/03/17 18:59 06:59 18:59 Intake Total 480 / 480 Balance 480 / 480 Weight 68.2 kg Intake: Oral 480 / 480 Other: # Voids 3 Narrative: GENERAL: Awake alert and oriented 3 talkative and cooperative appears stated age SKIN: Warm and dry. HEAD: Atraumatic. Normocephalic. EYES: Pupils equal and round. No scleral icterus. No injection or drainage. Extraocular muscles intact ENT: No nasal bleeding or discharge. Mucous membranes pink and moist. Tongue is midline NECK: Trachea midline. No JVD. Supple CARDIOVASCULAR: Regular rate and rhythm. S1-S2 no S3 or S4 RESPIRATORY: No accessory muscle use. Clear to auscultation. Breath sounds equal bilaterally. GASTROINTESTINAL: Abdomen soft, non-tender, nondistended. Hepatic and splenic margins not palpable. MUSCULOSKELETAL: Extremities without clubbing, cyanosis, or edema. No obvious deformities. NEUROLOGICAL: Awake and alert. No obvious cranial nerve deficits. Motor grossly within normal limits. Five out of 5 muscle strength in the arms and legs. Normal speech. PSYCHIATRIC: Appropriate mood and affect; insight and judgment normal. Results - Labs CBC & Chem 7: 12/03/17 04:47 12/03/17 04:47 Laboratory Results - last 24 hr 12/03/17 12/03/17 12/03/17 04:44 04:47 04:47 WBC 7.7 RBC 4.73 Hgb 15.1 Hct 44.2 MCV 93.3 MCH 31.9 MCHC 34.2 RDW 13.8 Plt Count 207 MPV 8.1 Neut % (Auto) 57.0 Lymph % (Auto) 31.7 [place] % (Auto) 9.0 H Eos % (Auto) 2.0 Baso % (Auto) 0.3 Neut # (Auto) 4.4 Lymph # (Auto) 2.4 [place] # (Auto) 0.7 Eos # (Auto) 0.2 Baso # (Auto) 0.0 WBC Differential . Differential Comment Auto diff final PT 10.0 INR 1.0 Sodium 143 Potassium 3.8 Chloride 109 H Carbon Dioxide 27.4 Anion Gap 7 BUN 12 Creatinine 0.99 Estimated GFR 77 L Random Glucose 86 Calcium 8.8 Phosphorus 3.1 Magnesium 2.2 Total Bilirubin 0.5 AST 49 H ALT 22 Alkaline Phosphatase 72 Total Protein 6.3 L D Albumin 3.2 L TSH 0.741 Free T4 1.18 - Imaging Chest X-Ray 12/01/17 13:34 CONCLUSION: Unremarkable study. - Procedures 12/01/2017 PROCEDURE PERFORMED: Emergency left heart catheterization, selective coronary angiography, left ventriculography, angioplasty/thrombectomy/stent of the proximal to mid right coronary artery. PROCEDURES NOTES: The patient was brought to the cardiac catheterization laboratory under emergency conditions in the midst of an acute inferior myocardial infarction. The right groin was prepped and draped as per policy and anesthetized with 1% lidocaine. Arterial access was obtained via the right femoral artery and a 6-[place]ib[place]ian sheath placed. Coronary arteriography was performed using 6-[place]ib[place]ian Abby left 4.0 and right progressive catheters. Left ventriculography was done using a standard 6-[place]ib[place]ian pigtail. Percutaneous coronary intervention was done as described below. There were no apparent, immediate complications. His arteriotomy site was closed with Angio-Seal. HEMODYNAMIC DATA: Left ventricle 144 with an end-diastolic pressure of 10. Aorta 143/75 with a mean of 104. There was no significant transvalvular aortic gradient on pullback of the pigtail catheter. CORONARY ARTERIOGRAPHY: The left main is normal. The left anterior descending is a medium-sized vessel giving rise to a tiny diagonal, which may have up to 20% ostial stenosis. There are minimal luminal irregularities in the proximal LAD. In the mid LAD, there is somewhat eccentric, up to 40% stenosis. The left circumflex is a very large vessel giving rise to a medium sized obtuse marginal distally. No disease is seen in the left circumflex system. There is a large ramus intermedius, which has diffuse mid disease, resulting in up to 15% stenosis. The right coronary artery is medium-sized dominant vessel, which has diffuse proximal to mid disease, which is ulcerated and thrombosed, resulting in up to 95% stenosis. LEFT VENTRICULOGRAPHY: Contrast injection of the left ventricle revealed no definite segmental wall motion abnormalities. Ejection fraction is estimated at 60%. PERCUTANEOUS CORONARY INTERVENTION DESCRIPTION: Cangrelor was given as per protocol. Adequate heparin was given to achieve an ACT of 300 seconds. Using a 6-[place]ib[place]ian hockey stick guiding catheter with side holes, the ostium of the right coronary artery was reengaged. Using a 0.014 [place] wire, the proximal to mid disease was crossed without difficulty and the tip of the wire positioned distally. Predilation was done using a 2.0 mm Euphora balloon catheter to enable passage of the [place] thrombectomy catheter. One pass was made with the [place] catheter clearing most of the thrombus. Further predilation was done using a 3.5 mm Euphora balloon catheter. Stenting was then done using a 3.5 x 26 mm Resolute Uli stent, which was deployed at 17 atmospheres for 40 seconds. At this point, there appears to be residual disease slightly proximal to the stent, resulting in up to 60% stenosis, so we decided to place another overlapping stent, which is a 3.5 x 8 mm Resolute [place] stent, which was deployed at 17 atmospheres for 40 seconds. Final angiography shows good results with reduction of the diffuse disease to roughly 0% residual with no definite evidence of dissection or distal embolization. The patient tolerated the procedure fairly well. There were no apparent, immediate complications. CONCLUSIONS: 1. Severe single vessel coronary artery disease. 2. Acute inferior ST elevation myocardial infarction due to severe disease in the proximal to mid right coronary artery, now status post thrombectomy, angioplasty, stent of this region. 3. Normal left ventricular function with estimated ejection fraction of 60%. Assessment and Plan - Plan ST elevation RI underwent cardiac catheterization with stenting who the right coronary artery by Dr. Baron Hypertension continue on an KRISTINA inhibitor and beta-geo Hyperlipidemia continue on statin COPD continue on his Advair and duo nebs as needed And Mucinex Nausea and vomiting continue on Zofran if no improvement may need a GI consult but also may be secondary to the [place] Tobacco cessation recommended continue on NicoDerm Anxiety continue on Ativan as needed Cleared by cardiology can be discharged to home No more nausea and vomiting Cleared by cardiology wants to be discharged home Code Status: Full code Discussed Condition With: RN and patient Discharge Planning: DC to home today
--- NOTE | 2017-12-03 10:05 | P.DS ---
Date of admission: 12/01/17 14:58 Primary care physician: Juan Villela DO Attending physician on discharge: Raphael Valdes Anticipated date of discharge: 12/03/17 Brief History from admission: Patient is a 62-year-old male with a 40 year pack history of smoking who presents to the emergency department with chest discomfort. Patient states that he was reaching over his head using a microwave when he started to have pressure in his chest that was constant and severe associated with nausea and diaphoresis. He felt like he was going to pass out. He had had some mild pain like this but nothing this severe before in the past. Was also somewhat short of breath denies any wheezing does have significant COPD and may need to be on oxygen in the future. Was seen by cardiology for an ST elevation myocardial infarction. Had a discomfort as a "pressure" associated with lightheadedness to the point of near syncope had similar chest discomfort in the past few months although much less intense in duration. Has moderate to mild dyspnea on exertion due to COPD Underwent a cardiac catheterization and stenting of the RCA by Dr. Baron His only home medications include Advair DS: Diagnosis - Discharge Diagnosis (1) Acute hypotension Status: Resolved (2) Non-sustained ventricular tachycardia Status: Resolved (3) ST elevation (STEMI) myocardial infarction Status: Acute (4) Hyperlipidemia Status: Chronic (5) Hypertension Status: Chronic (6) Tobacco abuse Status: Chronic DS: Medications - Discharge Medications Prescriptions: famotidine 20 mg PO BID #60 tab guaifenesin [Mucinex] 600 mg PO BID #60 tab nicotine 1 patch TRANSDERMAL DAILY #30 ea ondansetron 8 mg PO Q4H PRN #20 tab PRN Reason: Nausea Or Vomiting DS: Summary Hospital Course: Patient is a 62-year-old male with a 40 year pack history of smoking who presents to the emergency department with chest discomfort. Patient states that he was reaching over his head using a microwave when he started to have pressure in his chest that was constant and severe associated with nausea and diaphoresis. He felt like he was going to pass out. He had had some mild pain like this but nothing this severe before in the past. Was also somewhat short of breath denies any wheezing does have significant COPD and may need to be on oxygen in the future. Was seen by cardiology for an ST elevation myocardial infarction. Had a discomfort as a "pressure" associated with lightheadedness to the point of near syncope had similar chest discomfort in the past few months although much less intense in duration. Has moderate to mild dyspnea on exertion due to COPD Underwent a cardiac catheterization and stenting of the RCA by Dr. Baron His only home medications include Advair 7-30 PATIENT AMBULATING WELL NO CHEST PAIN OR NAUSEA OR VOMITING DW RN AND PT CLEARED BY CARDIOLOGY DC TO HOME TODAY FOLLOW UP CARDIOLOGY DR BARON 4 WEEKS - Time Spent with Patient Total time spent providing and/or coordinating discharge services: Greater than 30 minutes - Quality: VTE Deep Vein Thrombosis/Pulmonary Embolism Present on Admission: No Exam Vital signs: Vital Signs 12/02/17 11:00 12/02/17 12:00 12/02/17 13:00 Temperature 97.6 F Pulse Rate 77 64 83 Respiratory Rate 20 Blood Pressure 154/81 H Pulse Oximetry 99 12/02/17 15:00 12/02/17 16:00 12/02/17 17:00 Temperature 97.6 F Pulse Rate 53 L 54 L 76 Respiratory Rate 18 Blood Pressure 128/80 Pulse Oximetry 98 12/02/17 18:00 12/02/17 19:00 12/02/17 19:33 Temperature 97.7 F Pulse Rate 62 60 63 Respiratory Rate 22 Blood Pressure 125/91 H Pulse Oximetry 98 12/02/17 20:00 12/02/17 21:00 12/02/17 22:00 Temperature Pulse Rate 76 72 62 Respiratory Rate Blood Pressure Pulse Oximetry 12/02/17 23:00 12/02/17 23:13 12/03/17 00:00 Temperature 98.3 F Pulse Rate 63 76 Respiratory Rate 18 18 Blood Pressure 124/80 Pulse Oximetry 100 12/03/17 01:00 12/03/17 02:00 12/03/17 03:07 Temperature 96.6 F L Pulse Rate 75 58 L 63 Respiratory Rate 20 Blood Pressure 126/76 Pulse Oximetry 98 12/03/17 04:00 12/03/17 05:00 12/03/17 05:52 Temperature Pulse Rate 64 64 52 L Respiratory Rate Blood Pressure Pulse Oximetry 12/03/17 07:57 Temperature Pulse Rate 58 L Respiratory Rate 16 Blood Pressure Pulse Oximetry Intake & Output 12/02/17 12/03/17 12/03/17 18:59 06:59 18:59 Intake Total 480 / 480 Balance 480 / 480 Weight 68.2 kg Intake: Oral 480 / 480 Other: # Voids 3 Narrative: GENERAL: Awake alert and oriented 3 talkative and cooperative appears to be in no acute distress SKIN: Warm and dry. HEAD: Atraumatic. Normocephalic. EYES: Pupils equal and round. No scleral icterus. No injection or drainage. EOMI ENT: No nasal bleeding or discharge. Mucous membranes pink and moist. Tongue midline NECK: Trachea midline. No JVD. Supple CARDIOVASCULAR: Regular rate and rhythm. S1-S2 no S3 or S4 RESPIRATORY: No accessory muscle use. Clear to auscultation. Breath sounds equal bilaterally. GASTROINTESTINAL: Abdomen soft, non-tender, nondistended. Hepatic and splenic margins not palpable. MUSCULOSKELETAL: Extremities without clubbing, cyanosis, or edema. No obvious deformities. NEUROLOGICAL: Awake and alert. No obvious cranial nerve deficits. Motor grossly within normal limits. Five out of 5 muscle strength in the arms and legs. Normal speech. PSYCHIATRIC: Appropriate mood and affect; insight and judgment normal. Results Procedures completed during hospitalization: 12/01/2017 PROCEDURE PERFORMED: Emergency left heart catheterization, selective coronary angiography, left ventriculography, angioplasty/thrombectomy/stent of the proximal to mid right coronary artery. PROCEDURES NOTES: The patient was brought to the cardiac catheterization laboratory under emergency conditions in the midst of an acute inferior myocardial infarction. The right groin was prepped and draped as per policy and anesthetized with 1% lidocaine. Arterial access was obtained via the right femoral artery and a 6-Burkinan sheath placed. Coronary arteriography was performed using 6-Burkinan Abby left 4.0 and right progressive catheters. Left ventriculography was done using a standard 6-Burkinan pigtail. Percutaneous coronary intervention was done as described below. There were no apparent, immediate complications. His arteriotomy site was closed with Angio-Seal. HEMODYNAMIC DATA: Left ventricle 144 with an end-diastolic pressure of 10. Aorta 143/75 with a mean of 104. There was no significant transvalvular aortic gradient on pullback of the pigtail catheter. CORONARY ARTERIOGRAPHY: The left main is normal. The left anterior descending is a medium-sized vessel giving rise to a tiny diagonal, which may have up to 20% ostial stenosis. There are minimal luminal irregularities in the proximal LAD. In the mid LAD, there is somewhat eccentric, up to 40% stenosis. The left circumflex is a very large vessel giving rise to a medium sized obtuse marginal distally. No disease is seen in the left circumflex system. There is a large ramus intermedius, which has diffuse mid disease, resulting in up to 15% stenosis. The right coronary artery is medium-sized dominant vessel, which has diffuse proximal to mid disease, which is ulcerated and thrombosed, resulting in up to 95% stenosis. LEFT VENTRICULOGRAPHY: Contrast injection of the left ventricle revealed no definite segmental wall motion abnormalities. Ejection fraction is estimated at 60%. PERCUTANEOUS CORONARY INTERVENTION DESCRIPTION: Cangrelor was given as per protocol. Adequate heparin was given to achieve an ACT of 300 seconds. Using a 6-Burkinan hockey stick guiding catheter with side holes, the ostium of the right coronary artery was reengaged. Using a 0.014 [place] wire, the proximal to mid disease was crossed without difficulty and the tip of the wire positioned distally. Predilation was done using a 2.0 mm Euphora balloon catheter to enable passage of the [place] thrombectomy catheter. One pass was made with the [place] catheter clearing most of the thrombus. Further predilation was done using a 3.5 mm Euphora balloon catheter. Stenting was then done using a 3.5 x 26 mm Resolute Uli stent, which was deployed at 17 atmospheres for 40 seconds. At this point, there appears to be residual disease slightly proximal to the stent, resulting in up to 60% stenosis, so we decided to place another overlapping stent, which is a 3.5 x 8 mm Resolute Uli stent, which was deployed at 17 atmospheres for 40 seconds. Final angiography shows good results with reduction of the diffuse disease to roughly 0% residual with no definite evidence of dissection or distal embolization. The patient tolerated the procedure fairly well. There were no apparent, immediate complications. CONCLUSIONS: 1. Severe single vessel coronary artery disease. 2. Acute inferior ST elevation myocardial infarction due to severe disease in the proximal to mid right coronary artery, now status post thrombectomy, angioplasty, stent of this region. 3. Normal left ventricular function with estimated ejection fraction of 60%. Completed studies during hospitalization: Laboratory Results WBC 7.7 th/mm3 (4.0-11.0) 12/03/17 04:47 RBC 4.73 mil/mm3 (4.50-5.90) 12/03/17 04:47 Hgb 15.1 gm/dL (13.0-17.0) 12/03/17 04:47 Hct 44.2 % (39.0-51.0) 12/03/17 04:47 MCV 93.3 fL (80.0-100.0) 12/03/17 04:47 MCH 31.9 pg (27.0-34.0) 12/03/17 04:47 MCHC 34.2 % (32.0-36.0) 12/03/17 04:47 RDW 13.8 % (11.6-17.2) 12/03/17 04:47 Plt Count 207 th/mm3 (150-450) 12/03/17 04:47 MPV 8.1 fL (7.0-11.0) 12/03/17 04:47 Neut % (Auto) 57.0 % (16.0-70.0) 12/03/17 04:47 Lymph % (Auto) 31.7 % (9.0-44.0) 12/03/17 04:47 Bracken % (Auto) 9.0 % (0.0-8.0) H 12/03/17 04:47 Eos % (Auto) 2.0 % (0.0-4.0) 12/03/17 04:47 Baso % (Auto) 0.3 % (0.0-2.0) 12/03/17 04:47 Neut # (Auto) 4.4 th/mm3 (1.8-7.7) 12/03/17 04:47 Lymph # (Auto) 2.4 th/mm3 (1.0-4.8) 12/03/17 04:47 Bracken # (Auto) 0.7 th/mm3 (0.0-0.9) 12/03/17 04:47 Eos # (Auto) 0.2 th/mm3 (0.0-0.4) 12/03/17 04:47 Baso # (Auto) 0.0 th/mm3 (0.0-0.2) 12/03/17 04:47 WBC Differential . 12/03/17 04:47 Differential Comment Auto diff final 12/03/17 04:47 PT 10.0 sec (9.8-11.6) 12/03/17 04:44 INR 1.0 Ratio 12/03/17 04:44 APTT 22.5 sec (24.3-30.1) L 12/01/17 14:38 D-Dimer Quant (PE/DVT) 0.48 mg/L FEU (0.00-0.50) 12/01/17 13:35 Sodium 143 meq/L (136-145) 12/03/17 04:47 Potassium 3.8 meq/L (3.5-5.1) 12/03/17 04:47 Chloride 109 meq/L (98-107) H 12/03/17 04:47 Carbon Dioxide 27.4 meq/L (21.0-32.0) 12/03/17 04:47 Anion Gap 7 meq/L (5-15) 12/03/17 04:47 BUN 12 mg/dL (7-18) 12/03/17 04:47 Creatinine 0.99 mg/dL (0.60-1.30) 12/03/17 04:47 Estimated GFR 77 mL/min (>89) L 12/03/17 04:47 Random Glucose 86 mg/dL (74-106) 12/03/17 04:47 Calcium 8.8 mg/dL (8.5-10.1) 12/03/17 04:47 Phosphorus 3.1 mg/dL (2.5-4.9) 12/03/17 04:47 Magnesium 2.2 mg/dL (1.5-2.5) 12/03/17 04:47 Total Bilirubin 0.5 mg/dL (0.2-1.0) 12/03/17 04:47 AST 49 U/L (15-37) H 12/03/17 04:47 ALT 22 U/L (12-78) 12/03/17 04:47 Alkaline Phosphatase 72 U/L (45-117) 12/03/17 04:47 Total Creatine Kinase 393 U/L (39-308) H 12/02/17 03:25 CK-MB (CK-2) 45.6 ng/mL (0.5-3.6) H 12/02/17 03:25 CK-MB (CK-2) % 11.6 % (0.0-4.0) H* 12/02/17 03:25 Troponin I 0.10 ng/mL (0.02-0.05) H 12/01/17 14:45 B-Natriuretic Peptide 18 pg/mL (0-100) 12/01/17 13:35 Total Protein 6.3 g/dL (6.4-8.2) L D 12/03/17 04:47 Albumin 3.2 g/dL (3.4-5.0) L 12/03/17 04:47 Triglycerides 158 mg/dL (42-150) H 12/02/17 03:25 Cholesterol 257 mg/dL (120-200) H 12/02/17 03:25 LDL Cholesterol, Calc 191 mg/dL (0-99) H 12/02/17 03:25 HDL Cholesterol 34.5 mg/dL (40.0-60.0) L 12/02/17 03:25 Cholesterol/HDL Ratio 7.44 Ratio 12/02/17 03:25 TSH 0.741 uIU/mL (0.358-3.740) 12/03/17 04:47 Free T4 1.18 ng/dL (0.76-1.46) 12/03/17 04:47 Impressions Chest X-Ray 12/01/17 13:34 CONCLUSION: Unremarkable study. Labs on day of discharge: Labs from last 24 hours 12/03/17 12/03/17 12/03/17 04:47 04:47 04:47 WBC 7.7 RBC 4.73 Hgb 15.1 Hct 44.2 MCV 93.3 MCH 31.9 MCHC 34.2 RDW 13.8 Plt Count 207 MPV 8.1 Neut % (Auto) 57.0 Lymph % (Auto) 31.7 Bracken % (Auto) 9.0 H Eos % (Auto) 2.0 Baso % (Auto) 0.3 Neut # (Auto) 4.4 Lymph # (Auto) 2.4 Bracken # (Auto) 0.7 Eos # (Auto) 0.2 Baso # (Auto) 0.0 WBC Differential . Differential Comment Auto diff final PT INR Sodium 143 Potassium 3.8 Chloride 109 H Carbon Dioxide 27.4 Anion Gap 7 BUN 12 Creatinine 0.99 Estimated GFR 77 L Random Glucose 86 Hemoglobin A1c Pending Calcium 8.8 Phosphorus 3.1 Magnesium 2.2 Total Bilirubin 0.5 AST 49 H ALT 22 Alkaline Phosphatase 72 Total Protein 6.3 L D Albumin 3.2 L TSH 0.741 Free T4 1.18 12/03/17 04:44 WBC RBC Hgb Hct MCV MCH MCHC RDW Plt Count MPV Neut % (Auto) Lymph % (Auto) Bracken % (Auto) Eos % (Auto) Baso % (Auto) Neut # (Auto) Lymph # (Auto) Bracken # (Auto) Eos # (Auto) Baso # (Auto) WBC Differential Differential Comment PT 10.0 INR 1.0 Sodium Potassium Chloride Carbon Dioxide Anion Gap BUN Creatinine Estimated GFR Random Glucose Hemoglobin A1c Calcium Phosphorus Magnesium Total Bilirubin AST ALT Alkaline Phosphatase Total Protein Albumin TSH Free T4 - Impressions ITS Impressions Chest X-Ray 12/01/17 13:34 CONCLUSION: Unremarkable study. Discharge Plan - Discharge Disposition Patient Disposition: 01 Discharge Home - Discharge Condition Condition: Good - Discharge Order Discharge Orders: Discharge Order (Routine); Ordered 12/03/17 Ordered By: Raphael Valdes Cardiology Clear for Discharge (Routine); Ordered 12/03/17 Ordered By: Dank Baron - Discharge Details Anticipated Discharge Date: 12/03/17 Discharge Comment: DC TO HOME - Physicians Team Primary Care Provider: Juan Villela Attending Provider: Raphael Valdes Other Providers: Dank Baron MD ; [employer]
[2017-12-03 10:26] VITALS: BP 148/87; RESP 18; TEMP 97
[2017-12-03 10:37] VITALS: O2SAT 95
[2017-12-03 10:40] VITALS: PULSE 74
[2017-12-03] MEDS: Famotidine 20 MG Tablet PO SCH (10:44)
[2017-12-03] MEDS ORDERED: Iohexol 350 MG/ML 100 ML Vial (for Cath Lab) IVCONTRAST ONE (11:20)
[2017-12-03 16:27] LABS: Hemoglobin A1c 5.4 % (4.3-6.0)
== END 2017-12-03 11:55 | disposition home or self-care (01) ==
LOC: NEPE 13:15 → NEDA 14:58 → HCIS 16:33
PROVIDERS: ADMIT Hospitalist; ATTEND Hospitalist